=== PATIENT | male | born 1995 | race Caucasian/White ===

== ENCOUNTER 2024-06-14 01:32 | Emergency (ER) | payer SELFPAY ==
[~2024-06-14] VITALS: Ht 180.3 cm; Wt 99.8 kg
[2024-06-14] MEDS ORDERED: Ketorolac Tromethamine 60 MG/2 ML VIAL IM ONE (02:50)
[2024-06-14] MEDS ORDERED: NAPROXEN250 MG PO (02:51)
== END 2024-06-14 03:37 | disposition home or self-care (01) ==
LOC: ED 01:32
DX: S63.501A Unspecified sprain of right wrist, initial encounter (principal); X58.XXXA Exposure to other specified factors, initial encounter; Y93.89 Activity, other specified; Y92.009 Unspecified place in unspecified non-institutional (private) residence as the place of occurrence of the external cause; Y99.8 Other external cause status

== ENCOUNTER 2025-04-12 00:33 | Emergency (ER) | payer SELFPAY ==
[~2025-04-12] VITALS: Ht 182.8 cm; Wt 113.4 kg
[~2025-04-12 00:33] MED LIST: NAPROXEN250 MG PO
[2025-04-12] MEDS ORDERED: Acetaminophen/Oxycodone 5 MG/325 MG TABLET PO ONE (00:40)
[2025-04-12] MEDS ORDERED: TRAMADOL HCL50 MG PO (02:06)
== END 2025-04-12 02:25 | disposition home or self-care (01) ==
LOC: ED 00:33
DX: S82.61XA Displaced fracture of lateral malleolus of right fibula, initial encounter for closed fracture (principal); W22.8XXA Striking against or struck by other objects, initial encounter; Y93.67 Activity, basketball; Y92.89 Other specified places as the place of occurrence of the external cause; Y99.8 Other external cause status